=== PATIENT | male | born 1950 | race Caucasian/White ===

== ENCOUNTER 2016-12-22 16:47 | Inpatient (IN) | payer BC ==
[~2016-12-22] VITALS: Ht 185.4 cm; Wt 68.0 kg
[~2016-12-22 16:47] MED LIST: ALBU8.5H2 INH; AZIT250T6 PO; BENZ200C45 PO; FOLI1TAB16 PO; NIFE30TA2 PO; THIA100T13 PO
[2016-12-22] MEDS ORDERED: PROP20TA7 PO (17:10)
[2016-12-22] MEDS ORDERED: GABA-534 PO ×2 (17:10)
[2016-12-22] MEDS ORDERED: LORA2TAB95 PO ×2 (17:10)
[2016-12-22 17:48] LABS: CALCIUM 8.9 mg/dL (8.5-10.1); CREATININE 0.8 mg/dL (0.6-1.3)
[2016-12-22 17:52] LABS: BASOPHILS # (AUTO) 0.3 K/uL (0.0-0.2); BASOPHILS % (AUTO) 3.4 % (0.0-2.0); EOSINOPHILS # (AUTO) 0.4 K/uL (0.0-0.7); EOSINOPHILS % (AUTO) 3.9 % (0.0-7.0); HEMATOCRIT 37.4 % (40.0-50.0); HEMOGLOBIN 12.3 g/dL (14.0-18.0); LYMPHOCYTES % (AUTO) 19.8 % (20.5-51.5); MEAN CORPUSCULAR HEMOGLOBIN 29.7 uug (27.0-31.0); MEAN CORPUSCULAR HGB CONC 33 g/dL (32.0-37.0); MEAN CORPUSCULAR VOLUME 90.3 fL (82.0-92.0); MONOCYTES # (AUTO) 0.7 K/uL (0.1-1.30); MONOCYTES % (AUTO) 7.4 % (0.0-11.0); NEUTROPHILS # (AUTO) 6.7 K/uL (1.8-8.9); NEUTROPHILS % (AUTO) 65.5 % (38.5-71.5); PLATELET COUNT (AUTO) 331 K/uL (150-450); RED BLOOD CELL COUNT(AUTO) 4.14 MIL/uL (4.70-6.10); RED CELL DISTRIBUTION WIDTH 12.2 % (11.5-14.5); WHITE BLOOD COUNT (AUTO) 10.1 K/uL (4.0-11.2)
[2016-12-22 17:55] LABS: TROPONIN I < 0.017 ng/mL (0.00-0.056)
[2016-12-22 18:01] LABS: LACTIC ACID 0.7 mmol/L (0.4-2.0)
[2016-12-22 18:04] LABS: BILIRUBIN,DIRECT 0.1 mg/dL (0.0-0.2); BILIRUBIN,TOTAL 0.3 mg/dL (0.2-1.0); TOTAL PROTEIN, SERUM 6.5 g/dL (6.4-8.2)
--- NOTE | 2016-12-22 18:14 | NUR ---
Patient is resting comfortably on gurney while watching bedside TV, no acute change in condition seen.
--- NOTE | 2016-12-22 18:19 | NUR ---
Extra warm blankets & urinal provided, still for possible admission, pending [facility] hospitalist's callback.
[2016-12-22 18:21] LABS: BAND % (MANUAL) 2 % (0-10); EOSINOPHILS % (MANUAL) 3 % (0-8); LYMPHOCYTES % (MANUAL) 20 % (20-40); MONOCYTES % (MANUAL) 6 % (2-10); NEUTROPHILS % (MANUAL) 69 % (42-75)
--- NOTE | 2016-12-22 18:42 | NUR ---
Room 207 is not clean and ready at this time per 2nd floor meteorologist in chargeNEAL Forrester.
--- NOTE | 2016-12-22 19:00 | NUR ---
DAYSHIFT ENDORSED CARE, PT SITTING ON BED, ALERT, ORIENTED X 4, NO RESP DISTRESS NOTED OR REPORTED UPON ASSESSMENT. WILL CONTINUE TO MONITOR FOR SAFETY, PAIN, AND COMFORT...
[2016-12-22] MEDS ORDERED: LORAZEPAM 2 MG/1 ML VIAL IV PRN (20:45)
[2016-12-22] MEDS ORDERED: ALBUTEROL SULFATE 8 GM HFA.AER.AD INH PRN (20:45)
[2016-12-22] MEDS ORDERED: HYDROCODONE/APAP 5-325MG TABLET PO PRN (20:45)
[2016-12-22] MEDS ORDERED: ONDANSETRON 4 MG/2 ML VIAL IV PRN (20:45)
[2016-12-22] MEDS ORDERED: ACETAMINOPHEN 325 MG TABLET PO PRN (20:45)
[2016-12-22] MEDS ORDERED: ZOLPIDEM 5 MG TABLET PO PRN (20:45)
--- NOTE | 2016-12-22 20:52 | NUR ---
Pt. admitted to MED SURG , under care of Dr. Bethea, [place] List completed, pt alert, oriented x 4, no resp distress noted or reported upon transfer assessment. pt transferred via gurney...
[2016-12-22] MEDS ORDERED: ALBUTEROL SULFATE 2.5 MG/3 ML NEBU NEB PRN (21:00)
--- NOTE | 2016-12-22 21:00 | NUR ---
RECEIVED PT FROM ER BIB STAFF VIA WHEELCHAIR, IN NO ACUTE DISTRESS. PLACED IN ROOM 207, UNDER MD LYNN'S CARE. A/OX4. DENIES SOB OR PAIN AT THIS TIME. PT ON RA. VSS. AMBULATED TO BED IN SLOW, STEADY GAIT. ADMISSION DONE PROTOCOL. IV TO L FA #18 INTACT AND PATENT. MADE COMFORTABLE. ALL NEEDS ATTENDED AT THIS TIME. WILL CONTINUE TO MONITOR.
[2016-12-22 21:25] VITALS: BP 127/91
--- NOTE | 2016-12-22 22:00 | NUR ---
PATIENT REFUSING TO SIGN CTA OF CHEST, AND REQUESTS TO SPEAK TO MD. CALLED MD LYNN, PER , WILL TALK TO PT. Addendum: 12/23/16 at 0153 by DEEJAY LAZCANO RN REFUSING TO SIGN CONSENT FOR CTA CHEST.
[2016-12-22] MEDS: GABAPENTIN 300 MG CAPSULE PO SCH (22:36)
[2016-12-22] MEDS: BENZONATATE 100 MG CAPSULE PO SCH (22:36)
--- NOTE | 2016-12-22 23:00 | NUR ---
PT WANTS TO SPEAK WITH DR BEFORE EXAM REGARDING CT PULMONARY ANGIO PER NEAL VILLALBA. WILL CALL
--- NOTE | 2016-12-22 23:25 | NUR ---
PATIENT SEEN BY MD LYNN.
--- NOTE | 2016-12-22 23:30 | NUR ---
PATIENT WITH MONEY AND OTHER VALUABLES, PUT IN FOLDER AND FORM COMPLETED PER PROTOCOL, PT VOICED UNDERSTANDING AND SIGNED. COPY WITH PATIENT AND FORM AND FOLDER TAKEN BY CARDIOLOGY COORDINATOR, TO PLACE IN SECURED LOCKER. WILL CONTINUE TO MONITOR.
--- NOTE | 2016-12-22 23:59 | NUR ---
PATIENT AN EVERYDAY SMOKER, ORDER FOR NICOTINE PATCH 14MG DAILY, RECEIVED, NOTED. WILL CARRY OUT.
[2016-12-23 05:42] VITALS: BP 108/78
[2016-12-23] MEDS: BENZONATATE 100 MG CAPSULE PO SCH ×3 (06:00→21:29)
[2016-12-23] MEDS: PANTOPRAZOLE SODIUM 40 MG TABLET.DR PO SCH (06:36)
[2016-12-23 06:41] LABS: BASOPHILS # (AUTO) 0.1 K/uL (0.0-0.2); BASOPHILS % (AUTO) 1.2 % (0.0-2.0); EOSINOPHILS # (AUTO) 0.4 K/uL (0.0-0.7); EOSINOPHILS % (AUTO) 3.9 % (0.0-7.0); HEMATOCRIT 36.5 % (40.0-50.0); HEMOGLOBIN 12.2 g/dL (14.0-18.0); LYMPHOCYTES # (AUTO) 1.8 K/uL (0.8-4.8); LYMPHOCYTES % (AUTO) 18.5 % (20.5-51.5); MEAN CORPUSCULAR HEMOGLOBIN 30.6 uug (27.0-31.0); MEAN CORPUSCULAR HGB CONC 34 g/dL (32.0-37.0); MEAN CORPUSCULAR VOLUME 91.4 fL (82.0-92.0); MONOCYTES # (AUTO) 0.6 K/uL (0.1-1.30); MONOCYTES % (AUTO) 6.4 % (0.0-11.0); PLATELET COUNT (AUTO) 321 K/uL (150-450); RED BLOOD CELL COUNT(AUTO) 3.99 MIL/uL (4.70-6.10); WHITE BLOOD COUNT (AUTO) 9.9 K/uL (4.0-11.2)
--- NOTE | 2016-12-23 06:55 | NUR ---
End of shift note: Patient in bed resting, slept well. No sob. No tremors noted/reported. VSS. Patient's medications placed in med envelope per protocol, will take to pharmacy. Kept NPO for CTA Chest, this am, per radiology Slick, will take pt 7:10-7:30. Will endorse to day shift. Consent signed and placed in chart. All needs met. Call light in reach. Safety and comfort maintained.
[2016-12-23] MEDS ORDERED: IV NORMAL SALINE 250 ML IV ONE (07:12)
[2016-12-23] MEDS ORDERED: IOHEXOL 350 100 ML INFUS..BTL ONE (07:12)
[2016-12-23 07:38] LABS: ALBUMIN 2.8 g/dL (3.4-5.0); BILIRUBIN,TOTAL 0.5 mg/dL (0.2-1.0); CALCIUM 8.9 mg/dL (8.5-10.1); CREATININE 0.7 mg/dL (0.6-1.3); MAGNESIUM 1.4 mg/dL (1.8-2.4); PHOSPHOROUS 4.8 mg/dL (2.5-4.9); POTASSIUM 3.8 mmol/L (3.5-5.1); TOTAL PROTEIN, SERUM 6.1 g/dL (6.4-8.2)
--- NOTE | 2016-12-23 08:00 | NUR ---
Awake, alert, oriented x 4. Tremors of hand noted. Fall precaution instructed.
[2016-12-23] MEDS ORDERED: POTASSIUM CHLORIDE 20 MEQ TAB.PRT.SR PO ONE (08:45)
[2016-12-23] MEDS ORDERED: MAGNESIUM OXIDE 400 MG TABLET PO ONE (08:45)
[2016-12-23] MEDS ORDERED: BENZONATATE 100 MG PO SCH (09:00)
[2016-12-23] MEDS: GABAPENTIN 300 MG CAPSULE PO SCH ×3 (09:44→17:43)
[2016-12-23] MEDS: PROPRANOLOL HCL 20 MG TABLET PO SCH ×2 (09:45→21:29)
[2016-12-23] MEDS: FOLIC ACID 1 MG TABLET PO SCH (09:46)
[2016-12-23] MEDS: ASPIRIN EC 81 MG TABLET.DR PO SCH (09:46)
[2016-12-23] MEDS: NICOTINE 14 MG/24HR PATCH TD SCH (09:47)
[2016-12-23] MEDS: THIAMINE HCL 100 MG TABLET PO SCH (09:47)
[2016-12-23] MEDS: NIFEdipine XL 30 MG TABSR PO SCH (09:47)
--- NOTE | 2016-12-23 10:00 | NUR ---
Ambulating in the hallway with FWW. Fall precaution re enforced
[2016-12-23 11:29] VITALS: BP 107/79
[2016-12-23 15:40] VITALS: BP 109/73
--- NOTE | 2016-12-23 18:17 | NUR ---
Ambulating in the hallway with FWW after dinner
[2016-12-23 19:00] VITALS: BP 102/65
--- NOTE | 2016-12-23 19:30 | NUR ---
Received patient sleeping comfortably in bed. No s/ s of distress noted. Will monitor throughout the shift.
[2016-12-23] MEDS: MAGNESIUM OXIDE 400 MG TABLET PO SCH (21:29)
[2016-12-24 04:00] VITALS: BP 114/82
[2016-12-24] MEDS: BENZONATATE 100 MG CAPSULE PO SCH ×3 (05:51→22:00)
[2016-12-24] MEDS: PANTOPRAZOLE SODIUM 40 MG TABLET.DR PO SCH (05:52)
--- NOTE | 2016-12-24 06:41 | NUR ---
Patient slept through the night. No complaints of pain, no s/s of distress noted. Ambulated in the hallway. Frequent checks done to ensure safety. Due meds given. Will endorse accordingly. Addendum: 12/24/16 at 0646 by MILA REDDY RN Patient slept through the night. No complaints of pain, no s/s of distress noted. Ambulated in the hallway with walker. Frequent checks done to ensure safety. Due meds given. Will endorse accordingly.
--- NOTE | 2016-12-24 08:00 | NUR ---
awake alert cooperate well no sob or pain call jacobo in reach
[2016-12-24] MEDS: ASPIRIN EC 81 MG TABLET.DR PO SCH (08:21)
[2016-12-24] MEDS: NIFEdipine XL 30 MG TABSR PO SCH (08:21)
[2016-12-24] MEDS: PROPRANOLOL HCL 20 MG TABLET PO SCH ×2 (08:21→20:44)
[2016-12-24] MEDS: THIAMINE HCL 100 MG TABLET PO SCH (08:21)
[2016-12-24] MEDS: NICOTINE 14 MG/24HR PATCH TD SCH (08:21)
[2016-12-24] MEDS: GABAPENTIN 300 MG CAPSULE PO SCH ×3 (08:21→16:40)
[2016-12-24] MEDS: FOLIC ACID 1 MG TABLET PO SCH (08:21)
[2016-12-24 12:00] VITALS: BP 116/84
[2016-12-24 17:20] VITALS: BP 114/85
--- NOTE | 2016-12-24 18:00 | NUR ---
RESTING HEMODYNAMIC STATUS STABLE SAFETY MEASURE PROVIDED CALL NORIEGA IN REACH
[2016-12-24 19:00] VITALS: BP 109/82
--- NOTE | 2016-12-24 19:30 | NUR ---
PATIENT ALERT ORIENTED, AMBULATE WITH WALKER, NO COMPLAIN OF PAIN, CONT TO MONITOR.
[2016-12-24] MEDS: FLUTICASONE/SALMETEROL 250/50 INHALER INH SCH (20:43)
[2016-12-24] MEDS: MAGNESIUM OXIDE 400 MG TABLET PO SCH (20:44)
[2016-12-25 04:00] VITALS: BP 125/86
[2016-12-25] MEDS: BENZONATATE 100 MG CAPSULE PO SCH ×3 (06:03→21:17)
[2016-12-25] MEDS: PANTOPRAZOLE SODIUM 40 MG TABLET.DR PO SCH (06:03)
--- NOTE | 2016-12-25 06:16 | NUR ---
PATIENT ALERT, ORIENTED, SLEPT WELL, NO COMPLAIN OF PAIN, NO SOB, NO CHEST PAIN NOTED, PATIENT STILL HAS SLIGHT FINE TREMORS, USES WALKER WHEN AMBULATING.
--- NOTE | 2016-12-25 08:00 | NUR ---
awake alert and oriented, denies of pain, explained plan of care- verbalized understanding, up at bedside, instructed to use walker when ambulating and aski fir assistance- understood, safety measures maintained, call lite within reach
[2016-12-25] MEDS: FOLIC ACID 1 MG TABLET PO SCH (08:06)
[2016-12-25] MEDS: PROPRANOLOL HCL 20 MG TABLET PO SCH ×2 (08:06→20:15)
[2016-12-25] MEDS: THIAMINE HCL 100 MG TABLET PO SCH (08:06)
[2016-12-25] MEDS: NICOTINE 14 MG/24HR PATCH TD SCH (08:06)
[2016-12-25] MEDS: GABAPENTIN 300 MG CAPSULE PO SCH ×3 (08:06→17:26)
[2016-12-25] MEDS: NIFEdipine XL 30 MG TABSR PO SCH (08:07)
[2016-12-25] MEDS: ASPIRIN EC 81 MG TABLET.DR PO SCH (08:07)
[2016-12-25] MEDS: FLUTICASONE/SALMETEROL 250/50 INHALER INH SCH ×2 (08:08→20:14)
--- NOTE | 2016-12-25 10:33 | NUR ---
ambulated with walker in the hallway- tolerated well
[2016-12-25 11:29] VITALS: BP 112/85
[2016-12-25 16:06] VITALS: BP 104/57
[2016-12-25 16:08] VITALS: BP 106/80
--- NOTE | 2016-12-25 19:00 | NUR ---
PATIENT ALERT ORIENTED, AMBULATE WITH WALKER, NO COMPLAIN OF PAIN, NO SOB NOTED, STAYED IN HIS ROOM MOST OF THE EVENING.
--- NOTE | 2016-12-25 19:00 | NUR ---
resting in bed, no distress noted, appetite good, been ambulating in the [address] way- tolerating well
[2016-12-25 19:33] VITALS: BP 102/72
[2016-12-25] MEDS: MAGNESIUM OXIDE 400 MG TABLET PO SCH (20:15)
[2016-12-26 05:00] VITALS: BP 126/87
[2016-12-26] MEDS: PANTOPRAZOLE SODIUM 40 MG TABLET.DR PO SCH (06:05)
[2016-12-26] MEDS: BENZONATATE 100 MG CAPSULE PO SCH ×3 (06:05→21:17)
--- NOTE | 2016-12-26 06:17 | NUR ---
PATIENT SLEEP ON AND OFF, NO COMPLAIN OF PAIN NO SOB NOTED, STILL HAS EPISODE OF HAND TREMORS, CONTINUE TO USE WALKER WHILE AMBULATING AROUND THE HALLWAY.
[2016-12-26 07:36] LABS: BASOPHILS # (AUTO) 0.1 K/uL (0.0-0.2); BASOPHILS % (AUTO) 1.1 % (0.0-2.0); EOSINOPHILS # (AUTO) 0.3 K/uL (0.0-0.7); EOSINOPHILS % (AUTO) 4.7 % (0.0-7.0); HEMATOCRIT 37.1 % (40.0-50.0); HEMOGLOBIN 12.1 g/dL (14.0-18.0); LYMPHOCYTES % (AUTO) 17.9 % (20.5-51.5); MEAN CORPUSCULAR HEMOGLOBIN 29.7 uug (27.0-31.0); MEAN CORPUSCULAR HGB CONC 33 g/dL (32.0-37.0); MEAN CORPUSCULAR VOLUME 90.7 fL (82.0-92.0); MONOCYTES # (AUTO) 0.6 K/uL (0.1-1.30); MONOCYTES % (AUTO) 10.5 % (0.0-11.0); NEUTROPHILS # (AUTO) 3.8 K/uL (1.8-8.9); NEUTROPHILS % (AUTO) 65.8 % (38.5-71.5); PLATELET COUNT (AUTO) 251 K/uL (150-450); RED BLOOD CELL COUNT(AUTO) 4.09 MIL/uL (4.70-6.10); RED CELL DISTRIBUTION WIDTH 11.8 % (11.5-14.5)
[2016-12-26 07:37] LABS: WHITE BLOOD COUNT (AUTO) 5.8 K/uL (4.0-11.2)
--- NOTE | 2016-12-26 08:00 | NUR ---
awake alert and oriented, denies dof pain, states had episode of coughing last night and some short of breath that he has to sit up in chair, states feels tired today, up in chair for breakfast, call lite within reach
[2016-12-26] MEDS: NIFEdipine XL 30 MG TABSR PO SCH (08:04)
[2016-12-26] MEDS: ASPIRIN EC 81 MG TABLET.DR PO SCH (08:04)
[2016-12-26] MEDS: NICOTINE 14 MG/24HR PATCH TD SCH (08:04)
[2016-12-26] MEDS: THIAMINE HCL 100 MG TABLET PO SCH (08:04)
[2016-12-26] MEDS: GABAPENTIN 300 MG CAPSULE PO SCH ×3 (08:04→16:30)
[2016-12-26] MEDS: PROPRANOLOL HCL 20 MG TABLET PO SCH ×2 (08:04→20:23)
[2016-12-26] MEDS: FOLIC ACID 1 MG TABLET PO SCH (08:04)
[2016-12-26] MEDS: FLUTICASONE/SALMETEROL 250/50 INHALER INH SCH ×2 (08:07→20:25)
[2016-12-26 08:12] LABS: ALBUMIN 2.9 g/dL (3.4-5.0); BILIRUBIN,TOTAL 0.3 mg/dL (0.2-1.0); CALCIUM 8.9 mg/dL (8.5-10.1); CREATININE 0.7 mg/dL (0.6-1.3); MAGNESIUM 1.6 mg/dL (1.8-2.4); PHOSPHOROUS 3.8 mg/dL (2.5-4.9); POTASSIUM 3.9 mmol/L (3.5-5.1); TOTAL PROTEIN, SERUM 6.2 g/dL (6.4-8.2)
--- NOTE | 2016-12-26 10:00 | NUR ---
ambulated with walker in the hallway
[2016-12-26 10:52] VITALS: BP 123/88
[2016-12-26] MEDS ORDERED: MAGNESIUM OXIDE 400 MG TABLET PO ONE (11:00)
--- NOTE | 2016-12-26 15:15 | NUR ---
BP 151/103- states hasn't been feeling well today-Dr Younger informed- no order given
[2016-12-26 15:46] VITALS: BP 151/103
--- NOTE | 2016-12-26 18:56 | NUR ---
resting in bed, no distress noted, all needs attended and met, call lite within reach
--- NOTE | 2016-12-26 19:18 | NUR ---
PATIENT ALERT ORIENTED, USES WALKER TO AMBULATE, WITH SLIGHT HAND TREMORS NOTED, CALL LIGHT WITHIN REACH, TEACH PATIENT TO CALL FOR ASSISTANCE WHEN HE HAS SEVERE TREMORS, NO DISTRESS.
[2016-12-26 20:00] VITALS: BP 138/94
[2016-12-26] MEDS: MAGNESIUM OXIDE 400 MG TABLET PO SCH (20:22)
[2016-12-27 04:00] VITALS: BP 118/70
[2016-12-27] MEDS: BENZONATATE 100 MG CAPSULE PO SCH ×3 (05:29→22:00)
--- NOTE | 2016-12-27 05:32 | NUR ---
PATIENT AWAKE ALERT, ABLE TO MAKE NEEDS KNOWN, COMPLAIN OF STOMACH UPSET, GIVEN PROTONIX ORDERED. NO SOB NO CHEST PAIN, USES WALKER WHEN AMBULATING. CONT TO MONITOR.
[2016-12-27] MEDS: PANTOPRAZOLE SODIUM 40 MG TABLET.DR PO SCH (07:04)
--- NOTE | 2016-12-27 08:00 | NUR ---
SLIGHT SOB ON EXERTION DENIES PAIN, INDEPENDENT WITH BED MOBILITY WITH WALKER
[2016-12-27] MEDS: NICOTINE 14 MG/24HR PATCH TD SCH (08:44)
[2016-12-27] MEDS: ASPIRIN EC 81 MG TABLET.DR PO SCH (08:45)
[2016-12-27] MEDS: THIAMINE HCL 100 MG TABLET PO SCH (08:45)
[2016-12-27] MEDS: FOLIC ACID 1 MG TABLET PO SCH (08:45)
[2016-12-27] MEDS: PROPRANOLOL HCL 20 MG TABLET PO SCH (08:45)
[2016-12-27] MEDS: NIFEdipine XL 30 MG TABSR PO SCH (08:45)
[2016-12-27] MEDS: GABAPENTIN 300 MG CAPSULE PO SCH ×3 (08:45→17:19)
[2016-12-27] MEDS: FLUTICASONE/SALMETEROL 250/50 INHALER INH SCH ×2 (09:00→21:00)
[2016-12-27] MEDS ORDERED: METOPROLOL TARTRATE 25 MG TABLET PO SCH (09:00)
[2016-12-27 11:41] VITALS: BP 123/88
--- NOTE | 2016-12-27 12:00 | NUR ---
UP AND ABOUT AROUND THE HALLWAY WITH FWW, SLIGHT SOB ON EXERTION, CLOSELY MONITORED
--- NOTE | 2016-12-27 13:55 | NUR ---
Spoke to the patient about his discharge plan. He is actually much stronger in ambulating and doing his ADLs. Explained to him that all SNFs are out of network for his insurance and if possible, he may return to [place] back to his home. He agreed but was concerned about the package he was waiting for at the [facility]. This automobile sales consultant spoke to Jennifer [ ] from the [facility] and she confirmed that they received the package and they will deliver it to [facility] or tomorrow morning. Also left a message to VINCE Martinez from [facility]. The patient will be needing help in returning to [place]. He stated that his insurance paid for his fare to [place] for Detox and they should be able to pay for the return to [place]. Tried calling his insurance company - [employer] [place] [ ; ] but there was no answer. VINCE/DEACON will follow-up.
--- NOTE | 2016-12-27 14:00 | NUR ---
AMBULATED AROUND THE HALLWAY FAIRLY TOLERATED
[2016-12-27 15:54] VITALS: BP 139/96
--- NOTE | 2016-12-27 15:55 | NUR ---
NO ACUTE CHANGE, CONTINUE WITH CURRENT TX PLAN
--- NOTE | 2016-12-27 19:00 | NUR ---
PATIENT IN BED, RESTING, NO COMPLAIN OF PAIN NO SOB, NO CHEST PAIN, STILL HAS TREMORS ON HANDS, CONTINUE TO INSTRUCT PATIENT TO USE WALKER WHEN AMBULATING.
[2016-12-27 20:00] VITALS: BP 146/89
[2016-12-27] MEDS: MAGNESIUM OXIDE 400 MG TABLET PO SCH (20:29)
[2016-12-27] MEDS: PROPRANOLOL HCL 40 MG TABLET PO SCH (20:29)
[2016-12-27] MEDS ORDERED: PROPRANOLOL HCL 20 MG TABLET PO SCH (21:00)
[2016-12-28 04:00] VITALS: BP 106/78
[2016-12-28] MEDS: BENZONATATE 100 MG CAPSULE PO SCH ×3 (05:12→21:18)
[2016-12-28] MEDS: PANTOPRAZOLE SODIUM 40 MG TABLET.DR PO SCH (06:00)
--- NOTE | 2016-12-28 06:28 | NUR ---
PATIENT STATED HE SLEPT MOST OF THE NIGHT, REFUSED INHALER, NO COUGHING NOTED, NO CHEST PAIN NOTED, CONT TO MONITOR.
--- NOTE | 2016-12-28 07:45 | NUR ---
RESTING IN BED NO SIGNS OF DISTRESS,
[2016-12-28] MEDS: GABAPENTIN 300 MG CAPSULE PO SCH ×3 (08:36→16:39)
[2016-12-28] MEDS: FOLIC ACID 1 MG TABLET PO SCH (08:37)
[2016-12-28] MEDS: THIAMINE HCL 100 MG TABLET PO SCH (08:37)
[2016-12-28] MEDS: ASPIRIN EC 81 MG TABLET.DR PO SCH (08:37)
[2016-12-28] MEDS: NIFEdipine XL 30 MG TABSR PO SCH (08:37)
[2016-12-28] MEDS: NICOTINE 14 MG/24HR PATCH TD SCH (08:38)
[2016-12-28] MEDS: PROPRANOLOL HCL 40 MG TABLET PO SCH ×2 (08:38→20:11)
[2016-12-28] MEDS: FLUTICASONE/SALMETEROL 250/50 INHALER INH SCH ×2 (08:38→20:15)
[2016-12-28 11:44] VITALS: BP 113/88
--- NOTE | 2016-12-28 12:00 | NUR ---
INDEPENDENT WITH BED MOBILITY WITH FWW. NO SIGNS OF PAIN CONTINUE CURRENT TX PLAN
[2016-12-28 15:34] VITALS: BP 133/87
--- NOTE | 2016-12-28 16:51 | NUR ---
STABLE, SEE CM NOTES FOR DC PLANNING
[2016-12-28 19:00] VITALS: BP 124/87
[2016-12-28] MEDS: MAGNESIUM OXIDE 400 MG TABLET PO SCH (20:11)
--- NOTE | 2016-12-28 21:00 | NUR ---
PATIENT REFUSED ADVAIR INHALER, EXPLAINED IMPORTANCE OF MEDICATION.
[2016-12-29 04:00] VITALS: BP 130/99
--- NOTE | 2016-12-29 06:05 | NUR ---
PATIENT SLEPT WELL THROUGH OUT THE NIGHT, HAD NO COMPLAINS OF PAIN OR DISCOMFORT. AMBULATED X1 AT NIGHT IN HALLWAY, NO SOB OBSERVED/ REPORTED, TOLERATED WELL. HAS CALL LIGHT WITHIN REACH, ALL NEEDS ATTENDED. SAFETY MAINTAINED. WILL CONTINUE TO MONITOR.
[2016-12-29] MEDS: BENZONATATE 100 MG CAPSULE PO SCH ×3 (06:26→21:11)
[2016-12-29] MEDS: PANTOPRAZOLE SODIUM 40 MG TABLET.DR PO SCH (06:26)
[2016-12-29] MEDS: FLUTICASONE/SALMETEROL 250/50 INHALER INH SCH ×2 (08:03→20:39)
[2016-12-29] MEDS: ASPIRIN EC 81 MG TABLET.DR PO SCH (08:03)
[2016-12-29] MEDS: GABAPENTIN 300 MG CAPSULE PO SCH ×3 (08:03→16:01)
[2016-12-29] MEDS: THIAMINE HCL 100 MG TABLET PO SCH (08:03)
[2016-12-29] MEDS: NIFEdipine XL 30 MG TABSR PO SCH (08:03)
[2016-12-29] MEDS: PROPRANOLOL HCL 40 MG TABLET PO SCH ×2 (08:03→20:38)
[2016-12-29] MEDS: FOLIC ACID 1 MG TABLET PO SCH (08:03)
[2016-12-29] MEDS: NICOTINE 14 MG/24HR PATCH TD SCH (08:03)
[2016-12-29 11:24] VITALS: BP 130/93
[2016-12-29 15:32] VITALS: BP 154/95
[2016-12-29 19:00] VITALS: BP 136/82
[2016-12-29] MEDS: MAGNESIUM OXIDE 400 MG TABLET PO SCH (20:37)
--- NOTE | 2016-12-29 20:40 | NUR ---
PATIENT REFUSED ADVAIR INHALER, CLAIMS HE DOESN'T LIKE THE WAY IT MAKES HIM FEEL. EXPLAINED IMPORTANCE OF MEDICATION.
[2016-12-30 04:00] VITALS: BP 124/84
--- NOTE | 2016-12-30 05:55 | NUR ---
PATIENT SLEPT WELL THROUGHOUT THE NIGHT, HAD NO C/O PAIN OR DISCOMFORT. SHOWED NO SIGNS OF RESPIRATORY DISTRESS. CALL LIGHT WITHIN REACH, ALL NEEDS ATTENDED TO .
[2016-12-30] MEDS: BENZONATATE 100 MG CAPSULE PO SCH ×3 (06:05→21:26)
[2016-12-30] MEDS: PANTOPRAZOLE SODIUM 40 MG TABLET.DR PO SCH (06:06)
--- NOTE | 2016-12-30 07:47 | NUR ---
PT RECEIVED IN BED SLEEPING ,BREAKFAST SERVED,NO C/O PAIN NOTED.V/S ARE STABLE.PT IS AXOX3
[2016-12-30] MEDS: FLUTICASONE/SALMETEROL 250/50 INHALER INH SCH ×2 (08:04→20:17)
[2016-12-30] MEDS: GABAPENTIN 300 MG CAPSULE PO SCH ×3 (08:04→16:10)
[2016-12-30] MEDS: THIAMINE HCL 100 MG TABLET PO SCH (08:04)
[2016-12-30] MEDS: NICOTINE 14 MG/24HR PATCH TD SCH (08:05)
[2016-12-30] MEDS: FOLIC ACID 1 MG TABLET PO SCH (08:05)
[2016-12-30] MEDS: NIFEdipine XL 30 MG TABSR PO SCH (08:05)
[2016-12-30] MEDS: ASPIRIN EC 81 MG TABLET.DR PO SCH (08:05)
[2016-12-30] MEDS: PROPRANOLOL HCL 40 MG TABLET PO SCH ×2 (08:05→20:16)
[2016-12-30 11:50] VITALS: BP 118/81
--- NOTE | 2016-12-30 12:24 | NUR ---
The patient will be discharged tomorrow back to his home in [place] [[facility] [place] [address]]. Kassandra from [facility] arranged for his flight back home and he will be picked up at around 9:30 a.m. The patient has been updated and in agreement with his discharge plan. He will be provided with a car to [facility]. He will then follow-up with his PCP in [place]. Updated his RN, Paula, on his discharge plan.
[2016-12-30 15:53] VITALS: BP 99/73
[2016-12-30 19:00] VITALS: BP 118/82
[2016-12-30] MEDS: MAGNESIUM OXIDE 400 MG TABLET PO SCH (20:15)
--- NOTE | 2016-12-30 20:17 | NUR ---
PATIENT REFUSED ADVAIR INHALER BECAUSE HE DOESN'T LIKE THE WAY IT MAKES HIM FEEL, IMPORTANCE OF MEDICATION WAS EXPLAINED BUT PATIENT CONTINUES TO REFUSE
[2016-12-31 04:00] VITALS: BP 106/74
[2016-12-31] MEDS: PANTOPRAZOLE SODIUM 40 MG TABLET.DR PO SCH (06:22)
[2016-12-31] MEDS: BENZONATATE 100 MG CAPSULE PO SCH (06:22)
--- NOTE | 2016-12-31 06:26 | NUR ---
PATIENT SLEPT WELL THROUGHOUT THE NIGHT, HAD NO COMPLAINS OF PAIN OR DISCOMFORT. NO SIGNS OF RESPIRATORY DISTRESS NOTED. BRP WITH ASSISTANCE. CALL LIGHT WITHIN REACH SAFETY MEASURES MAINTAINED, ALL NEEDS ATTENDED TO.
[2016-12-31] MEDS ORDERED: FLUT1DIS28 INH (08:36)
[2016-12-31] MEDS ORDERED: ASPI-618 PO (08:36)
[2016-12-31] MEDS ORDERED: PROP40TA7 PO (08:36)
[2016-12-31 09:00] VITALS: BP 120/60
[2016-12-31] MEDS: PROPRANOLOL HCL 40 MG TABLET PO SCH (09:00)
[2016-12-31] MEDS: NIFEdipine XL 30 MG TABSR PO SCH (09:00)
[2016-12-31] MEDS: GABAPENTIN 300 MG CAPSULE PO SCH (09:00)
[2016-12-31] MEDS: NICOTINE 14 MG/24HR PATCH TD SCH (09:00)
[2016-12-31] MEDS: FLUTICASONE/SALMETEROL 250/50 INHALER INH SCH (09:00)
[2016-12-31] MEDS: THIAMINE HCL 100 MG TABLET PO SCH (09:00)
[2016-12-31] MEDS: FOLIC ACID 1 MG TABLET PO SCH (09:00)
[2016-12-31] MEDS: ASPIRIN EC 81 MG TABLET.DR PO SCH (09:00)
--- NOTE | 2016-12-31 09:45 | NUR ---
PT DECIDED NOT TO TAKE HIS WALKER, STATING "I DON'T THINK I NEED IT THERE, I WILL LEAVE IT HERE". V/S WNL. NO S/S OF RESPIRATORY DISTRESS NOTED. NO PAIN NOTED. WRISTBAND IS REMOVED. HOME MEDICATIONS ARE GIVEN BACK IN A BAG. . PT COUNTED ALL HIS BELONGINGS, BELONGING LIST IS SIGNED. WHEELED DOWN TO MEET AT THE PARKING LOT BY OCCUPATIONAL HEALTH COORDINATOR. PER S/W SERENITY ARRANGED THE PLANE TICKET AND TAX CREDIT LEASING CONSULTANT. TICKETS AND D/C EDUCATION IS GIVEN TO THE PATIENT. PT IS ALERT AND ORIENTED/CALM "STATES THAT HE IS READY TO GO HOME".
== END 2016-12-31 09:45 | disposition home or self-care (01) | DRG 92 ==
LOC: ER 16:52 → MED 20:23
PROVIDERS: ADMIT Internal Medicine; ATTEND Internal Medicine
DX: G25.0 Essential tremor (principal); F10.239 Alcohol dependence with withdrawal, unspecified; E44.0 Moderate protein-calorie malnutrition; Z68.1 Body mass index [BMI] 19.9 or less, adult; Z86.73 Personal history of transient ischemic attack (TIA), and cerebral infarction without residual deficits; I10 Essential (primary) hypertension; D64.9 Anemia, unspecified; R62.7 Adult failure to thrive; J44.9 Chronic obstructive pulmonary disease, unspecified; G89.29 Other chronic pain; Z87.891 Personal history of nicotine dependence; E83.42 Hypomagnesemia; G62.9 Polyneuropathy, unspecified; Z79.899 Other long term (current) drug therapy
CPT/HCPCS: 36415; 70030-TC; 70450; 71010; 71275; 83605; 83735; 84100; 85025; 85730; 87040; 93005; 97001; A4663; J7050; Q9967